=== PATIENT | female | born 1975 | race Caucasian/White ===

== ENCOUNTER 2021-01-27 18:50 | Emergency (ER) | payer MEDICARE, OTHER ==
[~2021-01-27 18:50] MED LIST: COLACE 100MG C100 MG PO; FLEXERIL 10 MG10 MG PO; HYDROCHLOROTH12.5 MG PO; IBUPROFEN600 MG PO; K-DUR TAB 20 M20 MEQ PO; NEURONTIN 300300 MG PO; NORCO 10-325 T1 EACH PO; ZOFRAN4 MG PO
[2021-01-27 21:24] LABS: HEMOGLOBIN 14.2 gm/dl (12.3-15.3); RED BLOOD COUNT 5.1 M/UL (4.00-5.10); WHITE BLOOD COUNT 7.9 K/UL (4.5-11.0)
[2021-01-27 21:47] LABS: BUN/CREATININE RATIO 7 (0-10)
[2021-01-28] MEDS ORDERED: IBUPROFEN600 MG PO (02:56)
== END 2021-01-28 03:10 | disposition home or self-care (01) ==
LOC: ER1 18:50
PROVIDERS: Physician Assistant
DX: B34.9 Viral infection, unspecified (principal); R42 Dizziness and giddiness; Z90.710 Acquired absence of both cervix and uterus; Z88.0 Allergy status to penicillin; Z88.1 Allergy status to other antibiotic agents
CPT/HCPCS: 71045; 80053; 81001; 82550; 82553; 83874; 83880; 84484; 85025; 86757; 87040; 99284; J7030

== ENCOUNTER → 2021-10-15 | Outpatient (CLI) | payer MEDICARE, OTHER | LOC: RAD 16:04 | DX: M54.6 Pain in thoracic spine (principal) | CPT/HCPCS: 72072 ==

== ENCOUNTER → 2021-11-28 | Outpatient (CLI) | payer MEDICARE, OTHER | LOC: RAD 14:03 | DX: M25.562 Pain in left knee (principal) | CPT/HCPCS: 73562 ==